=== PATIENT | male | born 2000 | race Caucasian/White ===

== ENCOUNTER 2025-03-05 12:53 | Emergency (ER) | payer MEDICAID ==
[~2025-03-05] VITALS: Ht 172.7 cm; Wt 78.0 kg
[~2025-03-05 12:53] MED LIST: ARIP30TA7 PO; PRAZ1CAP2 PO
[2025-03-05] MEDS ORDERED: ONDA-243 PO (14:31)
[2025-03-05] MEDS ORDERED: OLAN5TAB3 PO (14:31)
--- NOTE | 2025-03-05 14:32 | Physician Documentation ---
History of Present Illness ~ General Chief Complaint: Multiple Medical Complaints Stated Complaint: VOMITING Time Seen by MD: 13:25 Primary Medical Doctor: DR. ROD, Dr. Braden Mode of Arrival: POV History of Present Illness Initial Comments Patient is seen today with complaints of nausea and vomiting off and on. Patient does admit to smoking marijuana daily multiple times a day since high school so for about six years or so. Patient also admits to vaping daily. Patient denies any chest pain or shortness of breath or abdominal pain but states he has been nauseous and vomiting for about a week now. He states he has been able to keep down liquids. Patient has no complaints of diarrhea. Patient states he has had some hot flashes off and on. He has no other concern or complaint at this time. Medication Reconciliation Allergies: Uncoded Allergies: PCN (Adverse Reaction, Unknown, 03/05/25) throat swells Scheduled Aripiprazole* (Abilify*), 1 TAB PO DAILY, (Reported) Prazosin Hcl (Minipress), 1 MG PO BID, (Reported) Past Medical History Past Medical History: Depression Past Surgical History: no surgical history Drug Use: none Lives In: Home Occupation: employed Review of Systems Constitutional: Denies: chills, fever, weakness Eyes: Denies: pain, blurred vision ENT: Denies: ear pain, nose pain, throat pain, mouth pain Respiratory: Denies: cough, shortness of breath Cardiovascular: Denies: chest pain, palpitations Gastrointestinal: Denies: abdominal pain, nausea, vomiting Genitourinary: Denies: burning, dysuria Male Genitalia: Denies: penile discharge, testicular pain Neurological: Denies: headache, dizziness Musculoskeletal: Denies: pain, swelling Integumentary: Denies: rash, lesions Allergic/Immunologic: Denies: hives, itching Hematologic/Lymphatic: Denies: no symptoms reported Psychiatric: Denies: depression, anxiety Physical Exam Physical Exam Vital Signs: Temperature: 98.0, Heart Rate: 50, Respiratory Rate: 16, BP: 120/66, Pulse Oximetry: 96, Weight: 78.000 Oxygen Flow Rate: 0 Physical Exam General: Awake and Alert, no acute distress. HEENT: Conjunctiva pink, Sclera clear, Mucus Membranes moist. Neck: Supple without masses and tenderness. Resp: Unlabored. Lungs clear to auscultation bilaterally. Heart: Regular Rate and rhythm, normal S1 and S2 without murmur, rub or gallop. Abdomen: Soft and non tender no organomegaly Extremities: No cyanosis,clubbing or edema. Skin: Warm and Dry. Progress Results/Orders Results/Orders Vital Signs 03/05/25 03/05/25 03/05/25 12:57 13:15 14:11 Temp 98.0 Pulse 54 50 Resp 16 18 16 B/P (MAP) 120/77 120/66 (84) Pulse Ox 97 96 O2 Flow Rate 0 Medical Decision Making Findings Patient is seen today with complaints of nausea and vomiting off and on. Sonam chahal does admit to smoking marijuana daily multiple times a day since high school so for about six years or so. Patient also admits to vaping daily. Patient denies any chest pain or shortness of breath or abdominal pain but states he has been nauseous and vomiting for about a week now. He states he has been able to keep down liquids. Patient has no complaints of diarrhea. Patient states he has had some hot flashes off and on. He has no other concern or complaint at this time. Patient was given dose of Zyprexa 5 mg in the ED today. Patient also season Zofran 8 mg ODT tablet in the ED today. Patient given prescription for Zofran and Zyprexa to be taken as instructed. Patient also strongly advised to discontinue the use of marijuana into discontinue any THC use for 3-6 months. Patient voiced understanding. Patient will follow up with primary care in 2-5 days if no better as needed sooner. Patient will return to ED with any worsening, concerning or changing symptoms. Departure Disposition: 01 HOME / SELF CARE / HOMELESS Impression: Primary Impression: Cyclic vomiting syndrome Additional Impression: Marijuana dependence Condition: Improved Discharge Instructions: Cyclic Vomiting Syndrome, Adult Departure Forms: Excuse form Work or School Excused From: Work Excuse beginning now through the following date: March 07, 2025 Referrals: NO PRIMARY CARE PROVIDER (PCP) Prescriptions Olanzapine (Zyprexa) 5 Mg Tablet 1 TAB PO HS for 30 Days, #30 TAB 0 Refills Prov: GISELA RIZZO PAC 03/05/25 ONDANSETRON ODT 4mg tablet (ONDANSETRON ODT) 4 Mg Tab.rapdis 4 MG PO BID for 7 Days, #14 TAB Prov: GISELA RIZZO PAC 03/05/25 Signature Scribe Signature: No scribe Attestation: No scribe GISELA RIZZO PAC March 05, 2025 14:32
[2025-03-05] MEDS ORDERED: OLANZAPINE 5 MG TABLET PO SCH (14:44)
[2025-03-05] MEDS: OLANZAPINE 5 MG TABLET PO ONE (14:50)
[2025-03-05] MEDS: ondansetron 4mg rapidly disintigrating tab PO ONE (14:51)
[2025-03-05 14:56] VITALS: BP 124/72; PULSE 57; RESP 16; TEMP 98; O2SAT 97
== END 2025-03-05 14:55 | disposition home or self-care (01) ==
LOC: ER 12:53
DX: R11.15 Cyclical vomiting syndrome unrelated to migraine (principal); F12.20 Cannabis dependence, uncomplicated; F32.A Depression, unspecified; Z79.899 Other long term (current) drug therapy
CPT/HCPCS: 99283